=== PATIENT | female | born 1985 | race Caucasian/White ===

== ENCOUNTER 2021-05-28 18:25 | Inpatient (IN) | payer MEDICAID ==
[~2021-05-28] VITALS: Ht 149.9 cm; Wt 76.2 kg
[~2021-05-28 18:25] MED LIST: METHYLERGONOVINE MALEATE 0.2 MG/ML ONE
[2021-05-28] MEDS ORDERED: METHYLERGONOVINE MALEATE 0.2 MG/ML IM PRN (19:00)
[2021-05-28] MEDS ORDERED: RHO(D) IMMUNE GLOBULIN 300 MCG/SYR IM NR (19:00)
[2021-05-28] MEDS ORDERED: NALOXONE HCL 0.4 MG/ML 1ML VIAL IM PRN (19:00)
[2021-05-28] MEDS ORDERED: LACTATED RINGERS 1,000 ML IV SCH (19:00)
[2021-05-28] MEDS ORDERED: BUTORPHANOL TARTRATE 2 MG/ML VIAL IV PRN (19:00)
[2021-05-28] MEDS ORDERED: CARBOPROST TROMETHAMINE 250 MCG/ML AMPUL IM PRN (19:00)
[2021-05-28] MEDS ORDERED: LIDOCAINE HCL 1% 10 MG/ML 10ML VIAL INJ SCH (19:15)
[2021-05-28 19:22] LABS: BASOPHILS % 0.4 % (0.0-2.0); EOSINOPHILS % 0.2 % (0.0-5.0); HEMATOCRIT. 38.8 % (36.0-48.0); HEMOGLOBIN. 13.2 g/dL (12.0-16.0); LYMPHOCYTES % 14.7 % (20.0-50.0); MEAN CORPUSCULAR HEMOGLOBIN 31.1 pg (28.0-32.0); MEAN CORPUSCULAR VOLUME 91.7 fL (81.0-99.0); MONOCYTES % 4.6 % (2.0-8.0); NEUTROPHILS % 80.1 % (40.0-76.0); RED BLOOD CELL COUNT 4.24 mill/uL (4.2-5.4); RED CELL DISTRIBUTION WIDTH 15.3 % (11.6-14.6)
[2021-05-28] MEDS ORDERED: DEXT 5%/LR + PITOCIN 20UNITS/L 1,000 ML IV SCH (19:30)
[2021-05-28] MEDS ORDERED: MISOPROSTOL 100MCG TABLET VG SCH (19:30)
[2021-05-28 19:35] LABS: INR 0.9; PARTIAL THROMBOPLASTIN TIME 28.5 sec (23.4-31.0)
[2021-05-28 19:38] LABS: PLATELET 216 x1000/uL (130-400)
[2021-05-28 19:39] LABS: MEAN PLATELET VOLUME 10.9 fl (7.4-10.4)
[2021-05-28] MEDS ORDERED: MORPHINE SULFATE/PF 1MG/ML 10ML AMP ONE (19:46)
[2021-05-28] MEDS ORDERED: ONDANSETRON HCL 4MG/2ML INJ ONE (19:48)
[2021-05-28] MEDS ORDERED: EPHEDRINE SULFATE 50MG/ML VIAL ONE (19:48)
[2021-05-28] MEDS ORDERED: KETOROLAC 60MG/2ML VIAL IM ONE (19:48)
[2021-05-28] MEDS ORDERED: CEFAZOLIN SODIUM 1000MG/VIAL ONE (19:48)
[2021-05-28] MEDS ORDERED: OXYTOCIN 10 UNITS/ML 1ML ONE (19:48)
[2021-05-28] MEDS ORDERED: DEXAMETHASONE 4MG/ML 1ML VIAL ONE (19:48)
[2021-05-28 20:19] LABS: HEPATITIS B SURFACE ANTIGEN NEGATIVE
[2021-05-28] MEDS ORDERED: NALOXONE HCL 0.4 MG/ML 1ML VIAL IV PRN (20:30)
[2021-05-28] MEDS ORDERED: KETOROLAC 30MG/ML VIAL IV PRN (21:00)
[2021-05-28 23:20] VITALS: BP 101/59
[2021-05-29 00:01] LABS: CLARITY URINE CLEAR (CLEAR); COLOR URINE YELLOW (YELLOW); KETONES URINE 2+ (NEGATIVE); LEUKOCYTE ESTERASE URINE NEGATIVE (NEGATIVE); NITRITE URINE NEGATIVE (NEGATIVE); OCCULT BLOOD URINE 3+ (NEGATIVE); PH URINE 5.5 (4.5-8.0); PROTEIN URINE 1+ (NEGATIVE); SPECIFIC GRAVITY URINE 1.022 (1.005-1.030); UROBILINOGEN URINE 0.2 E.U./dL (0.2-1.0)
[2021-05-29 00:11] LABS: *AMPHETAMINES SCREEN URINE NEGATIVE (NEGATIVE); *BARBITURATES SCREEN URINE NEGATIVE (NEGATIVE); *BENZODIAZEPINES SCREEN URINE NEGATIVE (NEGATIVE); *COCAINE SCREEN URINE NEGATIVE (NEGATIVE)
[2021-05-29 00:12] LABS: METHADONE URINE SCREEN NEGATIVE (NEGATIVE); OPIATES URINE SCREEN NEGATIVE (NEGATIVE)
[2021-05-29 00:18] LABS: CANNABINOID URINE SCREEN NEGATIVE (NEGATIVE); PHENCYCLIDINE URINE SCREEN NEGATIVE (NEGATIVE)
[2021-05-29] MEDS ORDERED: ONDANSETRON HCL 4MG/2ML INJ IV PRN (00:30)
[2021-05-29] MEDS ORDERED: DIPHENHYDRAMINE 25MG CAPSULE PO PRN (00:30)
[2021-05-29] MEDS ORDERED: DEXT 5%/LR + PITOCIN 20UNITS/L 1,000 ML IV SCH (00:30)
[2021-05-29] MEDS ORDERED: BISACODYL 10MG SUPP PR PRN (00:30)
[2021-05-29] MEDS ORDERED: RHO(D) IMMUNE GLOBULIN 300 MCG/SYR IM PRN (00:30)
[2021-05-29] MEDS ORDERED: LANOLIN OINT 7GM TUBE TOP PRN (00:30)
[2021-05-29] MEDS ORDERED: IBUPROFEN 400MG TABLET PO PRN (00:30)
[2021-05-29] MEDS ORDERED: ACETAMINOPHEN WITH CODEINE 300/30MG TABLET PO PRN (00:30)
[2021-05-29] MEDS ORDERED: HEMORRHOIDAL SUPP PR PRN (00:30)
[2021-05-29] MEDS ORDERED: DEXT 5%/LACTATED RINGERS 1,000 ML IV SCH (00:30)
[2021-05-29 04:00] VITALS: BP 98/51
[2021-05-29 07:31] LABS: HEMATOCRIT. 30.2 % (36.0-48.0); HEMOGLOBIN. 10.1 g/dL (12.0-16.0); MEAN CORPUSCULAR HEMOGLOBIN 30.9 pg (28.0-32.0); MEAN CORPUSCULAR VOLUME 92.1 fL (81.0-99.0); PLATELET 212 x1000/uL (130-400); RED BLOOD CELL COUNT 3.28 mill/uL (4.2-5.4); RED CELL DISTRIBUTION WIDTH 15.2 % (11.6-14.6)
[2021-05-29 08:00] VITALS: BP 99/55
[2021-05-29 08:47] LABS: CHLORIDE 106 mEq/L (98-107)
[2021-05-29] MEDS: MAGNESIUM/ALUMINUM HYDROXIDE/SIMETHICONE 30ML UDC PO SCH ×4 (09:42→22:30)
[2021-05-29] MEDS: PRENATAL VIT/FE FUMARATE/FA TABLET PO SCH (09:42)
[2021-05-29] MEDS: SIMETHICONE 80MG TABLET CHEW PO SCH ×4 (09:42→22:23)
[2021-05-29 10:56] LABS: PLATELET ESTIMATE NORMAL
[2021-05-29 16:00] VITALS: BP 97/48
[2021-05-29 20:00] VITALS: BP 97/46
[2021-05-29] MEDS: DOCUSATE SODIUM 100MG CAPSULE PO SCH (22:22)
[2021-05-29] MEDS: IBUPROFEN 800MG TABLET PO PRN (22:31)
[2021-05-30 00:22] VITALS: BP 89/41
[2021-05-30 05:19] VITALS: BP 90/44
[2021-05-30] MEDS: MAGNESIUM/ALUMINUM HYDROXIDE/SIMETHICONE 30ML UDC PO SCH ×4 (07:45→21:19)
[2021-05-30] MEDS: PRENATAL VIT/FE FUMARATE/FA TABLET PO SCH (07:46)
[2021-05-30] MEDS: FERROUS SULFATE 325MG TABLET PO SCH ×3 (07:46→17:19)
[2021-05-30] MEDS: SIMETHICONE 80MG TABLET CHEW PO SCH ×4 (07:46→21:19)
[2021-05-30 08:32] VITALS: BP 85/45
[2021-05-30] MEDS: IBUPROFEN 800MG TABLET PO PRN ×2 (13:49→21:19)
[2021-05-30 15:41] VITALS: BP 103/48
[2021-05-30 20:00] VITALS: BP 99/54
[2021-05-30] MEDS: DOCUSATE SODIUM 100MG CAPSULE PO SCH (21:19)
[2021-05-31 03:10] VITALS: BP 90/48
[2021-05-31] MEDS ORDERED: IBUP-2030 PO (06:10)
[2021-05-31 08:00] VITALS: BP 95/55
[2021-05-31] MEDS: SIMETHICONE 80MG TABLET CHEW PO SCH (09:32)
[2021-05-31] MEDS: FERROUS SULFATE 325MG TABLET PO SCH (09:32)
[2021-05-31] MEDS: MAGNESIUM/ALUMINUM HYDROXIDE/SIMETHICONE 30ML UDC PO SCH (09:32)
[2021-05-31] MEDS: PRENATAL VIT/FE FUMARATE/FA TABLET PO SCH (09:32)
== END 2021-05-31 13:20 | disposition home or self-care (01) | DRG 539 ==
LOC: OBSVTOIN 18:25 → 8 EST LDRP 18:25 → INTOOBSV 18:25 → 8EST 23:19
PROVIDERS: ADMIT Obstetrics & Gynecology; ATTEND Obstetrics & Gynecology
PROC: 10D00Z1 Extraction of Products of Conception, Low, Open Approach (ICD-10-PCS; principal; 2021-05-28)
PROC: 0UB70ZZ Excision of Bilateral Fallopian Tubes, Open Approach (ICD-10-PCS; 2021-05-28)
DX: O36.63X0 Maternal care for excessive fetal growth, third trimester, not applicable or unspecified (principal); D64.9 Anemia, unspecified; O77.0 Labor and delivery complicated by meconium in amniotic fluid; O24.429 Gestational diabetes mellitus in childbirth, unspecified control; Z20.822 Contact with and (suspected) exposure to COVID-19; O90.81 Anemia of the puerperium; Z37.0 Single live birth; Z30.2 Encounter for sterilization; Z3A.38 38 weeks gestation of pregnancy
CPT/HCPCS: 36415; 80048; 80305; 81003; 85025; 86592; 86703; 86762; 86850; 86900; 87340; 87426; 88302; 88307; J0690; J1100; J1885; J2210; J2274; J2405; J3490; J7121